=== PATIENT | male | born 1965 | race Hispanic/Latino ===

== ENCOUNTER 2018-12-11 12:25 | Inpatient (IN) | payer BC, OTHER ==
[~2018-12-11] VITALS: Ht 177.8 cm; Wt 75.3 kg
[2018-12-11 12:55] LABS: BASOPHILS % (AUTO) 0.7 % (0.0-5.0); EOSINOPHILS % (AUTO) 1.5 % (0.0-8.0); HEMATOCRIT 46.6 % (42-54); LYMPHOCYTES % (AUTO) 12.2 % (21.0-51.0); MEAN CORPUSCULAR HEMOGLOBIN 31.7 pg (27.0-33.0); MEAN CORPUSCULAR HGB CONC 34.2 g/dL (32.0-36.0); MEAN CORPUSCULAR VOLUME 92.7 fL (79-99); MONOCYTES % (AUTO) 6.3 % (3.0-13.0); NEUTROPHILS % (AUTO) 79.3 % (40.0-77.0); PLATELET COUNT (AUTO) 189 K/uL (130-400); RED BLOOD CELL COUNT(AUTO) 5.03 MIL/uL (4.50-6.20); RED CELL DISTRIBUTION WIDTH 13.2 % (11.0-15.5); WHITE BLOOD COUNT (AUTO) 9.3 K/uL (4.8-10.8)
[2018-12-11 13:05] LABS: CREATININE 1.1 mg/dL (0.5-1.5); POTASSIUM 3.7 mmol/L (3.5-5.1)
[2018-12-11 13:10] LABS: ALBUMIN 3.5 g/dL (3.5-5.0); BILIRUBIN,TOTAL 0.8 mg/dL (0.2-1.0); MAGNESIUM 2.6 mg/dL (1.80-2.40); TOTAL PROTEIN, SERUM 7.3 g/dL (6.0-8.3)
[2018-12-11 13:11] LABS: APPEARANCE,URINE Clear (CLEAR); BILIRUBIN,URINE Negative (NEGATIVE); COLOR,URINE Yellow (YELLOW); GLUCOSE, URINE (UA) Negative (NEGATIVE); KETONES,URINE Negative (NEGATIVE); LEUKOCYTE ESTERASE ,URINE Trace (NEGATIVE); NITRATE,URINE Negative (NEGATIVE); OCCULT BLOOD,URINE Negative (NEGATIVE); PH,URINE 6.5 (5.0-8.0); PROTEIN,URINE Negative (NEGATIVE)
[2018-12-11 13:19] LABS: INR 1.09 (0.85-1.15); PROTHROMBIN TIME 11.4 SEC (9.6-11.6)
[2018-12-11 13:23] LABS: BACTERIA,URINE Rare /HPF (None Seen); RBC,URINE None Seen /HPF (0-1)
[2018-12-11 13:26] LABS: SQUAMOUS EPITHELIAL CELL,UR 0-2 /HPF (0-2); WBC,URINE 0-1 /HPF (0-1)
[2018-12-11] MEDS ORDERED: MORPHINE SULFATE 2 MG/ML 1ML SYG IV PRN (16:15)
[2018-12-11] MEDS ORDERED: ACETAMINOPHEN 325 MG TAB PO PRN (16:15)
[2018-12-11] MEDS ORDERED: HYDRALAZINE HCL 20 MG/ML VIAL IV PRN (16:15)
[2018-12-11] MEDS ORDERED: ONDANSETRON HCL 4 MG/2 ML VIAL IV PRN (16:15)
[2018-12-11] MEDS: ASPIRIN 81MG TAB.CHEW PO SCH (16:15)
[2018-12-11 17:55] LABS: CREATINE KINASE, TOTAL 47 U/L (21-232); MYOGLOBIN 30 ng/mL (10-92); TROPONIN I < 0.04 ng/mL (0.00-0.06)
[2018-12-11] MEDS ORDERED: ASPIRIN 81MG TAB.CHEW ONE (19:41)
[2018-12-11] MEDS: FAMOTIDINE/PF 20 MG/2 ML VIAL IV SCH (21:00)
[2018-12-11] MEDS ORDERED: FAMOTIDINE/PF 20 MG/2 ML VIAL IV ONE (21:06)
[2018-12-11 21:48] LABS: CREATINE KINASE, TOTAL 73 U/L (21-232); MYOGLOBIN 29 ng/mL (10-92); TROPONIN I < 0.04 ng/mL (0.00-0.06)
[2018-12-11 23:00] VITALS: BP 140/81
[2018-12-12 04:41] VITALS: BP 129/79
[2018-12-12 05:04] LABS: BASOPHILS % (AUTO) 1.2 % (0.0-5.0); EOSINOPHILS % (AUTO) 3.2 % (0.0-8.0); HEMATOCRIT 46.9 % (42-54); LYMPHOCYTES % (AUTO) 19.1 % (21.0-51.0); MEAN CORPUSCULAR HGB CONC 33.5 g/dL (32.0-36.0); MEAN CORPUSCULAR VOLUME 92.7 fL (79-99); MONOCYTES % (AUTO) 8.6 % (3.0-13.0); NEUTROPHILS % (AUTO) 67.9 % (40.0-77.0); PLATELET COUNT (AUTO) 185 K/uL (130-400); RED BLOOD CELL COUNT(AUTO) 5.06 MIL/uL (4.50-6.20); RED CELL DISTRIBUTION WIDTH 13.1 % (11.0-15.5); WHITE BLOOD COUNT (AUTO) 8.5 K/uL (4.8-10.8)
[2018-12-12 05:13] LABS: POTASSIUM 4.1 mmol/L (3.5-5.1)
[2018-12-12 07:30] VITALS: BP 121/69
[2018-12-12] MEDS: ENOXAPARIN SODIUM 40 MG/0.4 ML SYRINGE SQ SCH (09:00)
[2018-12-12] MEDS: ASPIRIN 81MG TAB.CHEW PO SCH (09:00)
[2018-12-12] MEDS: FAMOTIDINE/PF 20 MG/2 ML VIAL IV SCH ×2 (09:18→19:47)
[2018-12-12 11:00] VITALS: BP 134/79
--- NOTE | 2018-12-12 11:00 | NUR ---
PROCEDURE PATIENT TRANSFERRED TO [facility] FOR STRESS TEST.
[2018-12-12 16:00] VITALS: BP 118/77
[2018-12-12] MEDS ORDERED: SODIUM CHLORIDE 0.9% 500ML 500 ML IV SCH (16:09)
[2018-12-12] MEDS ORDERED: BISACODYL 10 MG SUPP.RECT RC ONE ×2 (18:55→19:00)
[2018-12-12 20:00] VITALS: BP 119/74
[2018-12-13] VITALS (11 sets, daily range): BP systolic 105–124; BP diastolic 67–78
[2018-12-13 06:08] LABS: BASOPHILS % (AUTO) 1.3 % (0.0-5.0); EOSINOPHILS % (AUTO) 2.7 % (0.0-8.0); HEMATOCRIT 46.1 % (42-54); LYMPHOCYTES % (AUTO) 21.8 % (21.0-51.0); MEAN CORPUSCULAR HGB CONC 33.5 g/dL (32.0-36.0); MEAN CORPUSCULAR VOLUME 92.7 fL (79-99); MONOCYTES % (AUTO) 9.2 % (3.0-13.0); PLATELET COUNT (AUTO) 176 K/uL (130-400); RED BLOOD CELL COUNT(AUTO) 4.97 MIL/uL (4.50-6.20); RED CELL DISTRIBUTION WIDTH 13.2 % (11.0-15.5); WHITE BLOOD COUNT (AUTO) 8.2 K/uL (4.8-10.8)
[2018-12-13 06:14] LABS: CREATININE 1.1 mg/dL (0.5-1.5); POTASSIUM 3.7 mmol/L (3.5-5.1)
--- NOTE | 2018-12-13 06:25 | NUR ---
NURSING NOTE Gave report to Corry RAMIREZ for pt going to room 201
[2018-12-13] MEDS: ASPIRIN 81MG TAB.CHEW PO SCH (06:54)
[2018-12-13] MEDS: ENOXAPARIN SODIUM 40 MG/0.4 ML SYRINGE SQ SCH (06:54)
--- NOTE | 2018-12-13 08:00 | NUR ---
ASSESSMENT PT IS AAOX4 DENIES CP DENIES SOB DENIES NV NO COMPLAINTS RESTING IN BED. NPO STATUS FOR [facility] TODAY. PATIENT HAS SIGNED CONSENT ALREADY.
[2018-12-13] MEDS ORDERED: IOHEXOL-350 50ML VIAL IV ONE (08:15)
[2018-12-13] MEDS ORDERED: IOHEXOL 350 MG/ML 100ML INFUS..BTL IV ONE (08:15)
[2018-12-13] MEDS ORDERED: HEPARIN SODIUM 1000UNIT/ML 10ML VIAL ONE (08:15)
[2018-12-13] MEDS ORDERED: LIDOCAINE HCL 2% 20ML ONE (08:15)
[2018-12-13] MEDS: FAMOTIDINE/PF 20 MG/2 ML VIAL IV SCH (08:59)
--- NOTE | 2018-12-13 09:00 | NUR ---
DOWN TO [facility] VIA BED WITH [facility] STAFF
[2018-12-13] MEDS ORDERED: AMLO2.5T4 PO (09:25)
--- NOTE | 2018-12-13 09:36 | NUR ---
RETURNED FROM [facility] AAOX4 DENIES CP DENIES SOB DENIES NV NO COMPLAINTS, RIGHT GROIN CATH SITE DRESSING IS CLEAN DRY AND INTACT. BEDREST IN PROGRESS.
--- NOTE | 2018-12-13 12:30 | NUR ---
BEDREST COMPLETED RIGHT GROIN REMAINS WNL NO COMPLAINTS.
--- NOTE | 2018-12-13 13:16 | NUR ---
CAROTID RESULTS REPORTED TO DR SINHA AND DR AVALOS. OK TO CT HOME.
--- NOTE | 2018-12-13 13:56 | NUR ---
DC TO HOME PT AND FAMILY VERBALIZE DC INSTRUCTIONS UNDERSTANDING, AGREE TO TAKE MEDICATIONS ORDERED. AGREE TO FOLLOW UP WITH DR Mulugeta CASTILLO WITHIN 1 WEEK. ALL QUESTIONS ANSWERED, PIV REMOVED CATH TIP INTACT TELE PACK REMOVED. DOWN VIA WC TO VEHICLE WITH NURSE AIDE AND FAMILY.
== END 2018-12-13 14:08 | disposition home or self-care (01) | DRG 287 ==
LOC: EDH 12:25 → EDHIP 16:04 → OBSVTOIN 16:04 → 3AH 22:45 → 2AH 12-13 06:38
PROVIDERS: ADMIT Hospitalist; ATTEND Hospitalist
PROC: 4A023N7 Measurement of Cardiac Sampling and Pressure, Left Heart, Percutaneous Approach (ICD-10-PCS; principal; 2018-12-13)
PROC: B2111ZZ Fluoroscopy of Multiple Coronary Arteries using Low Osmolar Contrast (ICD-10-PCS; 2018-12-13)
PROC: B2151ZZ Fluoroscopy of Left Heart using Low Osmolar Contrast (ICD-10-PCS; 2018-12-13)
DX: I24.9 Acute ischemic heart disease, unspecified (principal); I11.9 Hypertensive heart disease without heart failure; I45.10 Unspecified right bundle-branch block; K59.00 Constipation, unspecified
CPT/HCPCS: 36415; 70450; 71045; 78452; 80048; 80053; 81001; 82140; 82550; 83690; 83735; 83874; 84443; 84484; 85025; 85378; 85610; 85730; 93005; 93017; 93458; 93880; 96374; A9500; C1760; C1894; G0378; J1644; J3490; Q9967